=== PATIENT | female | born 1940 | race Caucasian/White ===

== ENCOUNTER 2019-07-18 23:27 | Emergency (ER) | payer OTHER ==
[~2019-07-18] VITALS: Ht 162.6 cm; Wt 67.1 kg
[~2019-07-18 23:27] MED LIST: ADV100/50; AMLODIPINE BES2.5 M1; ATI0.5 PO; COLACE100 MG PO; COREG12.5 MG PO; ECO81 PO; GLU850 PO; L20 PO; LEXAPRO10 MG PO; LIPI20 PO; LIPITOR40 MG; LOSARTAN POTASS25 M1; METFORMIN500 M1; NORCO1 TA2 PO; PRI20 PO; PROVENTIL0.09 MG/A1; SINGULAIR4 MG; SYN1 PO; ZES10 PO
[2019-07-18 23:34] VITALS: Ht 162.6 cm; Wt 67.1 kg
[2019-07-19 00:59] LABS: PLATELET COUNT 101 x10^3mcL (130-400); RED CELL DISTRIBUTION WIDTH 14.6 % (11.5-14.5)
[2019-07-19 01:03] LABS: UA SPECIFIC GRAVITY 1.015 (1.005-1.035); microscopic required? YES; urine erythrocyte NEGATIVE (NEGATIVE)
[2019-07-19 01:05] LABS: CALCIUM 9.1 mg/dL (8.5-10.1); CARBON DIOXIDE 31.9 mmol/L (21-32); CHLORIDE SERUM 100 mmol/L (98-107); CREATININE SERUM 0.6 mg/dL (0.6-1.0); GLUCOSE SERUM 119 mg/dL (74-106); POTASSIUM SERUM 3.5 mmol/L (3.5-5.1); SODIUM SERUM 139 mmol/L (136-145)
[2019-07-19 01:09] LABS: ALBUMIN 3.5 g/dL (3.4-5.0); ALKALINE PHOSPHATASE 250 U/L (46-116); ALT/SGPT 40 U/L (14-59); AST/SGOT 44 U/L (15-37); BAND NEUTROPHIL 0 % (0-10); BASOPHIL 0 % (0-2); BILIRUBIN TOTAL 0.67 mg/dL (0.20-1.00); LIPASE 98 IU/L (73-393); MONOCYTE 12 % (0-7); SEGMENTED NEUTROPHILS 70 % (37-75); TOTAL PROTEIN, SERUM 6.6 g/dL (6.4-8.2)
[2019-07-19 01:10] LABS: rbc morphology (normal/abnorm) NORMAL (NORMAL)
[2019-07-19 04:09] VITALS: BP 110/70
== END 2019-07-19 04:09 | disposition home or self-care (01) ==
LOC: ED 23:27
PROVIDERS: Emergency Medicine
DX: R10.84 Generalized abdominal pain (principal); M54.6 Pain in thoracic spine; C85.90 Non-Hodgkin lymphoma, unspecified, unspecified site; I10 Essential (primary) hypertension; E11.9 Type 2 diabetes mellitus without complications; Z88.1 Allergy status to other antibiotic agents
CPT/HCPCS: 87804; J2270; J2405; Q0092